=== PATIENT | male | born 1985 ===

== ENCOUNTER → 2018-05-05 | Outpatient (CLI) | payer SELFPAY ==
[2018-05-07 02:11] LABS: HBSAG SCREEN Negative (Negative); HEP A AB, IGM Negative (Negative); HEP B CORE AB, IGM Negative (Negative); HEP C VIRUS AB <0.1 (0.0-0.9); HIV SCREEN 4TH GENERATION WRFX Non Reactive (Non Reactive)
[2018-05-08 03:07] LABS: CHLAMYDIA TRACHOMATIS, NAA Negative (Negative); NEISSERIA GONORRHOEAE, NAA Negative (Negative)
== END | disposition home or self-care (01) ==
LOC: LAB EV 18:27 → LAB SHORT 18:27
PROVIDERS: Physician Assistant Medical
DX: Z72.51 High risk heterosexual behavior (principal)
CPT/HCPCS: 80074; 86592; 87389; 87491; 87591